=== PATIENT | male | born 1945 | race Caucasian/White ===

== ENCOUNTER 2023-01-23 10:00 | Emergency (ER) | payer OTHER ==
--- OUTSIDE RECORDS SUMMARY | 2023-01-23 10:03 | XMS REPORT | Continuity of Care Document ---
:1945 Author Organization [facility] t Address [address] [facility]. [address] [place] [address] Care Team Providers Name Role Phone Kieran Burger Primary Care Physician Eduardo Quintero Attending Clinician Unavailable Vaccine, Ang Db Cbc Fam Attending Clinician Unavailable Emily Cruz MD Attending Clinician EMILY CRUZ Attending Clinician Unavailable Only, Adc Test Attending Clinician Unavailable Satinder Walsh MD Attending Clinician SATINDER WALSH Attending Clinician Unavailable Doctor Unassigned, [place] Attending Clinician Unavailable Physician, No Primary or Family Admitting Clinician Unavaila ble Payers Payer Name Policy Type Policy Number Effective Date Expiration Date S ource Problems Condition Condition Condition Status Onset Resolution Last Treating Co mments Source Name Details Category Date Date Treatment Clinician Date 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 Asbestosi s. COPD COPD Disease Active 2014-05 Univers (chronic (chronic 1-18 [place] pulmonary pulmonary Bran ch disease) disease) Current Current Disease Active 2014-05 Univers smoker smoker 1-18 ity of 00:00: [address] Allergies, Adverse Reactions, Alerts Allergy Allergy Status Severity Reaction(s) Onset Inactive Treating Comm ents Source Name Type Date Date Clinician No Known DA Active [facility] [place] [facility]: [facility] No Known DA Active U [facility] [place] Allergie 00:00: [facility] NO KNOWN Drug Active Univers ALLERGIE Class ity of S [facility] Social History Social Habit Start Date Stop Date Quantity Comments Source Alcohol Comment 6 pack day Universit y [facility] Exposure to 2021-08-17 2021-08-27 Not sure University of SARS-CoV-2 00:00:00 09:43:00 [facility] (event) [place] Tobacco use and 2017-07-08 2017-07-08 Current user Univers ity of exposure 00:00:00 00:00:00 [facility] Alcohol intake 2017-07-08 2017-07-08 Current drinker Unive rsity of 00:00:00 00:00:00 of alcohol [facility] (finding) Branch History of 2014-03-26 Smoker University of tobacco use 00:00:00 [facility] Sex Ass[birth year] At [birth year] Universit y of 00:00:00 00:00:00 [facility] Smoking Status Start Date Stop Date Source Former smoker 2017-07-08 00:00:00 2017-07-08 00:00:00 Universi ty [facility] Medications Ordered Filled Start Stop Current Ordering Indication Dosage Frequency Signature Comments Components Source Medication Medication Date Date Medication? Clinician (SIG) Name Name MULTIVITAMI Yes Take by Uni vers N ORAL 1-08 mouth. ity of 13:20: [address] Branch VIT A/VIT Yes Take by Unive rs C/VIT 1-08 mouth. ity of E/ZINC/ANN-MARIE 13:20: [address] (PRESERVISI Branch ON AREDS ORAL) cetirizine Yes 10mg Take 10 mg U nivers (ZYRTEC) 10 1-08 by mouth ity of mg tablet 13:20: daily. [address] Branch MULTIVITAMI Yes Take by Uni vers N ORAL 1-08 mouth. ity of 13:20: [address] VIT A/VIT Yes Take by Unive rs C/VIT 1-08 mouth. ity of E/ZINC/ANN-MARIE 13:20: [place] [address] Medical (PRESERVISI Branch ON AREDS ORAL) cetirizine Yes 10mg Take 10 mg U nivers (ZYRTEC) 10 1-08 by mouth ity of mg tablet 13:20: daily. [address] MULTIVITAMI Yes Take by Uni vers N ORAL 1-08 mouth. ity of 07:20: [address] VIT A/VIT Yes Take by Unive rs C/VIT 1-08 mouth. ity of E/ZINC/ANN-MARIE 07:20: [place] [address] Medical (PRESERVISI Branch ON AREDS ORAL) cetirizine Yes 10mg Take 10 mg U nivers (ZYRTEC) 10 1-08 by mouth ity of mg tablet 07:20: daily. [address] Branch hydrocortis Yes Apply to Un felicia one 1-08 affected ity of (PROCTOCORT 00:00: area(s) Efraín as ) 1 % cream 00 daily. Medica l Branch hydrocortis Yes Apply to Un felicia one 1-08 affected ity of (PROCTOCORT 00:00: area(s) Efraín as ) 1 % cream 00 daily. Medica l Branch hydrocortis Yes Apply to Un felicia one 1-08 affected ity of (PROCTOCORT 00:00: area(s) Efraín as ) 1 % cream 00 daily. Medica l Branch Procedures Procedure Date / Time Performed Performing Clinician [facility] SARS-COV-2 COVID-19 2021-08-27 15:33:07 [facility] Branch BOOSTER,0.25ML,IM (MODERNA) ASSIGNMENT OF BENEFITS 2020-06-03 16:04:29 Doctor Unassigned, No [facility] Name Medical Branch Encounters Start End Encounter Admission Attending Care Care Encounter Source Date/Time Date/Time Type Type Clinicians Facility Department ID 2022-09-10 Outpatient [facility] [id number] Common 10:28:00 [id number] [facility] 2022-09-04 [facility] [id number] Common 11:11:00 [id number] [facility] 2020-06-13 Inpatient LALA Garcia [id number] [facility] 05:55:15 Eduardo Soraya [place] [facility] 2021-08-27 2021-08-27 Imm/Inj Vaccine, Ang Db Cbc Fam [facility] 1. [id number] Univers 10:00:00 10:10:00 Visit Emily Cruz [id number] ity of [facility] [id number] Efraín as SALLY?BLEA [phone] Al [address] MEDICAL OFFICE BUILDING 2021-08-27 2021-08-27 Outpatient Razia CRUZ [facility] [id number] Univers 10:00:00 10:00:00 EMILY garcia [facility] 2020-06-03 2020-06-03 Laboratory Only, [facility] Test [facility] [id number]. [id number] Univers 10:07:29 10:22:29 Only Satinder Walsh [id number] ity of [place] [id number] [facility] [phone] [facility] [address] [place] 2020-06-03 2020-06-03 Laboratory Only, [facility] [id number] 10:07:29 10:22:29 Only Test Katlyn [id number] [place] [id number] [place] [id number] 2020-06-03 2020-06-03 Outpatient Razia WALSH [facility] [id number] Univers 10:00:00 10:00:00 SATINDER garcia [facility] 2020-06-03 2020-06-03 Orders Doctor GLORIA [id number] Univers 00:00:00 00:00:00 Only UnassignedYULIANA [id number] ity of [place] [facility] [id number] Efraín as [id number] [address] 2020-06-03 2020-06-03 Orders Doctor FAIZAN [id number] 00:00:00 00:00:00 Only Unassigned, YULIANA [id number] [place] [facility] [id number] Results This patient has no known results.
[2023-01-23 10:32] LABS: Absolute Lymphocytes (CBC) 1.5 K/uL (0.7-4.9); Hematocrit 43.6 % (39.6-49.0); Lymphocytes % 12.8 % (15.3-44.8); MCV 99.6 fL (80-100); MPV 7.1 fL (7.6-11.3); Platelets 188 thou/uL (152-406); RBC Red Blood Cell Count 4.38 M/uL (4.33-5.43)
[2023-01-23 10:38] LABS: Protime INR 1.14
[2023-01-23 10:49] LABS: Albumin 3.7 g/dL (3.4-5.0); Bilirubin Total 1.1 mg/dL (0.2-1.0); Potassium 4.1 mEq/L (3.5-5.1); Protein, Total 7.5 g/dL (6.4-8.2)
--- NOTE | 2023-01-23 11:12 | RAD REPORT ---
EXAM DESCRIPTION: RAD - Tib Fib Left - 01/23/2023 11:07 am CLINICAL HISTORY: eval for foreign body Pain and swelling COMPARISON: <Comparisons> FINDINGS: No fracture or radiopaque foreign body. Mild soft tissue swelling is seen pretibial soft t issues.
--- NOTE | 2023-01-23 11:36 | EDPHYS ---
Physician Documentation [facility] Name: Kvng Conley Jr Age: 77 yrs Sex: Male : 1945 Arrival Date: 01/23/2023 Time: 10:00 Bed 5 Private MD: Maureen Burger C ED Physician Jian Howe HPI: 01/23 11:32 This 77 yrs old Male presents to ER via Ambulatory with complaints of Wound Check. rn 11:32 This 77 yrs old Male presents to ER via Ambulatory with complaints of leg swelling. rn 11:32 The patient presents with pain, swelling. The complaints affect the left del cid. rn 11:33 Onset: The symptoms/episode began/occurred 3 day(s) ago. Modifying factors: The rn symptoms are alleviated by nothing. the symptoms are aggravated by movement. Severity of symptoms: At their worst the symptoms were mild, in the emergency department the symptoms are unchanged. The patient has not experienced similar symptoms in the past. Patient reports using weedeater and small branch/twig got stuck in left lower anterior leg. Was only stuck about half an inch and he was able to pull it out with any evidence of arterial bleeding. Washed the wound. Now having small area of redness and swelling to the affected area and left ankle. No fever or chills.. Historical: - Allergies: 10:14 No Known Allergies; hb - Immunization history:: Adult Immunizations up to date. - Social history:: Smoking status: Patient denies any tobacco usage or history of. - Family history:: not pertinent. - Hospitalizations: : No recent hospitalization is reported. ROS: 11:33 Constitutional: Negative for fever, chills, and weight loss, Cardiovascular: Negative rn for chest pain, palpitations, and edema, Respiratory: Negative for shortness of breath, cough, wheezing, and pleuritic chest pain, MS/Extremity: Positive injury and redness to left lower extremity Neuro: Negative for headache, weakness, numbness, tingling, and seizure, Exam: 11:33 Constitutional: This is a well developed, well nourished patient who is awake, alert, rn and in no acute distress. Skin: Warm, dry, mild erythema to distal left lower extremity, no fluctuance, mild swelling around the left ankle. No foreign bodies identified. No proximal streaking. MS/ Extremity: Pulses equal, no cyanosis. Neurovascular intact. Full, normal range of motion. Vital Signs: 10:11 BP 143 / 85; Pulse 62; Resp 16; Temp 98.5(O); Pulse Ox 100% on R/A; Pain 10/10; hb 10:27 BP 143 / 85; Pulse 58; Resp 18; Pulse Ox 100% on R/A; ld1 10:27 Weight 82.55 kg; Height 5 ft. 8 in. ; Pain 7/10; ld1 11:16 BP 126 / 78; Pulse 51; Resp 18; Pulse Ox 100% on R/A; ld1 10:27 Body Mass Index 27.67 (82.55 kg, 172.72 cm) ld1 10:11 Pain Scale: Adult hb 10:27 Pain Scale: Adult ld1 MDM: 10:03 Patient medically screened. rn 11:33 Differential diagnosis: foreign body, cellulitis. Data reviewed: vital signs, nurses rn notes, lab test result(s), radiologic studies, plain films, and as a result, I will discharge patient. Counseling: I had a detailed discussion with the patient and/or guardian regarding the historical points, exam findings, and any diagnostic results supporting the discharge/admit diagnosis, lab results, radiology results, the need for outpatient follow up, to return to the emergency department if symptoms worsen or persist or if there are any questions or concerns that arise at home. Special discussion: I discussed with the patient/guardian in detail that at this point there is no indication for admission to the hospital. It is understood, however, that if the symptoms persist or worsen the patient needs to return immediately for re-evaluation. Based on the history and exam findings, there is no indication for further emergent testing or inpatient evaluation. I discussed with the patient/guardian the need to see the primary care provider for further evaluation of the symptoms. ED course: I have personally reviewed all of the results, including but not limited to blood tests and imaging deemed necessary to safely discharge this patient at this time. All results given to and printed out for patient. I personally went over all the results with the patient and answered all questions. Patient will follow-up with PCP and or specialist as discussed. Return precautions given and understood.. 01/23 10:18 Order name: Blood Culture Adult (2) rn 01/23 10:18 Order name: CBC with Diff; Complete Time: 10:50 rn 01/23 10:18 Order name: CMP; Complete Time: 10: rn 01/23 10:18 Order name: Lactate w/ 2H reflex if indic.; Complete Time: 10: rn 01/23 10:18 Order name: Protime (+inr); Complete Time: 10: rn 01/23 10:18 Order name: Ptt, Activated; Complete Time: 10: rn 01/23 10:18 Order name: XRAY Tib Fib LEFT; Complete Time: 11:15 rn 01/23 10:18 Order name: EKG; Complete Time: 10: rn 01/23 10:18 Order name: Accucheck; Complete Time: 10: rn 01/23 10:18 Order name: Cardiac monitoring; Complete Time: : rn 01/23 10:18 Order name: EKG - Nurse/Tech; Complete Time: 10:37 rn 01/23 10:18 Order name: IV Saline Lock - Large Bore; Complete Time: 10: rn 01/23 10:18 Order name: Labs collected and sent; Complete Time: 10: rn 01/23 10:18 Order name: O2 Per Protocol; Complete Time: 10: rn 01/23 10:18 Order name: O2 Sat Monitoring; Complete Time: : rn 01/23 10:18 Order name: Vital Signs; Complete Time: 10:26 rn Administered Medications: 11:48 Drug: Clindamycin IVPB 600 mg IVPB once over 30 mins; (mix in 50 mL) Route: IVPB; ph Infused Over: 30 mins; Site: right antecubital; 12:37 Follow up: Response: No adverse reaction; IV Status: Completed infusion ph 12:06 Drug: ceFAZolin IVPB 1 grams IVPB once Route: IVPB; Site: right antecubital; ph 12:37 Follow up: Response: No adverse reaction; IV Status: Completed infusion ph Disposition Summary: 01/23/23 11:36 Discharge Ordered Notes: Location: Home rn Problem: new rn Symptoms: are unchanged rn Condition: Stable rn Diagnosis - Cellulitis of left lower limb rn - Puncture wound without foreign body, left lower leg, initial encounter rn Followup: rn - With: Private Physician - When: 2 - 3 days - Reason: Recheck today's complaints, Re-evaluation by your physician Discharge Instructions: - Discharge Summary Sheet rn - Cellulitis, Adult rn Forms: - Medication Reconciliation Form rn - Thank You Letter rn - Antibiotic distance learning coordinator - Prescription Opioid Use rn - Patient Portal Instructions rn - Leadership Thank You Letter rn Prescriptions: - Cephalexin 500 mg Oral Capsule - take 1 capsule ORAL route every 12 hours for 10 days; 20 capsule; Refills: 0, rn Product Selection Permitted - Clindamycin HCl 300 mg Oral Capsule - take 1 capsule ORAL route every 6 hours for 10 days; 40 capsule; Refills: 0, rn Product Selection Permitted Signatures: Dispatcher [employer] EDJian Maldonado MD MD rn Hall, Patricia, RN RN Kianna Perry RN RN Corrections: (The following items were deleted from the chart) 11:34 11:33 Constitutional: Negative for fever, chills, and weight loss, MS/Extremity: rn Positive injury and redness to left lower extremity rn
--- NOTE | 2023-01-23 11:36 | ER ---
Nurse's Notes [facility] Name: Kvng Conley Jr Age: 77 yrs Sex: Male : 1945 Arrival Date: 01/23/2023 Time: 10:00 Bed 5 Private MD: Maureen Burger C Diagnosis: Cellulitis of left lower limb;Puncture wound without foreign body, left lower leg, initial encounter Presentation: 01/23 10:11 Chief complaint: Stick punctured left del cid while using weed eater 3 days ago, now c/o hb pain, redness, swelling, subjective fever, and chills. Coronavirus screen: At this time, the client does not indicate any symptoms associated with coronavirus-19. Ebola Screen: No symptoms or risks identified at this time. Initial Sepsis Screen: Does the patient meet any 2 criteria? No. Patient's initial sepsis screen is negative. Does the patient have a suspected source of infection? No. Patient's initial sepsis screen is negative. Risk Assessment: Do you want to hurt yourself or someone else? Patient reports no desire to harm self or others. Onset of symptoms was January 20, 2023. 10:11 Method Of Arrival: Ambulatory hb 10:11 Acuity: DANITZA 3 hb Historical: - Allergies: 10:14 No Known Allergies; hb - Immunization history:: Adult Immunizations up to date. - Social history:: Smoking status: Patient denies any tobacco usage or history of. - Family history:: not pertinent. - Hospitalizations: : No recent hospitalization is reported. Screenin:27 [facility] ED Fall Risk Assessment (Adult) History of falling in the last 3 months, ld1 including since admission No falls in past 3 months (0 pts). Abuse screen: Denies threats or abuse. Denies injuries from another. Nutritional screening: No deficits noted. Tuberculosis screening: No symptoms or risk factors identified. Assessment: 10:27 General: Appears in no apparent distress. comfortable, Behavior is calm, cooperative, ld1 appropriate for age. Pain: Complains of pain in left del cid. Pain: Pain does not radiate. Pain currently is 9 out of 10 on a pain scale. Quality of pain is described as throbbing, Pain began 2-3 days ago. Is continuous. Neuro: Level of Consciousness is awake, alert, obeys commands, Oriented to person, place, time, situation. Cardiovascular: Capillary refill < 3 seconds Patient's skin is warm and dry. Respiratory: Airway is patent Respiratory effort is even, unlabored. GI: Abdomen is flat, non-distended. : No signs and/or symptoms were reported regarding the genitourinary system. EENT: No signs and/or symptoms were reported regarding the EENT system. Derm: Wound noted left del cid. Musculoskeletal: No signs and/or symptoms reported regarding the musculoskeletal system. Vital Signs: 10:11 BP 143 / 85; Pulse 62; Resp 16; Temp 98.5(O); Pulse Ox 100% on R/A; Pain 10/10; hb 10:27 BP 143 / 85; Pulse 58; Resp 18; Pulse Ox 100% on R/A; ld1 10:27 Weight 82.55 kg; Height 5 ft. 8 in. ; Pain 7/10; ld1 11:16 BP 126 / 78; Pulse 51; Resp 18; Pulse Ox 100% on R/A; ld1 10:27 Body Mass Index 27.67 (82.55 kg, 172.72 cm) ld1 10:11 Pain Scale: Adult hb 10:27 Pain Scale: Adult ld1 ED Course: 10:02 Patient arrived in ED. rg4 10:03 Jian Howe MD is Attending Physician. rn 10:03 Maureen Burger MD is Private Physician. rg4 10:14 Triage completed. hb 10:14 Arm band placed on. hb 10:26 Shawanda Burgess, NILA is Primary Nurse. ld1 10:26 Blood Culture Adult (2) Sent. ld1 10:26 Lactate w/ 2H reflex if indic. Sent. ld1 10:27 Patient has correct armband on for positive identification. Placed in gown. Bed in low ld1 position. Call light in reach. Side rails up X2. quality assurance monitor chassis on. Pulse ox on. NIBP on. Door closed. Noise minimized. Warm blanket given. 10:27 No provider procedures requiring assistance completed. Inserted saline lock: 20 gauge ld1 in right antecubital area, using aseptic technique. Blood collected. 11:08 XRAY Tib Fib LEFT In Process Unspecified. EDMS 12:38 IV discontinued, intact, bleeding controlled, No redness/swelling at site. Pressure ph dressing applied. Administered Medications: 11:48 Drug: Clindamycin IVPB 600 mg IVPB once over 30 mins; (mix in 50 mL) Route: IVPB; ph Infused Over: 30 mins; Site: right antecubital; 12:37 Follow up: Response: No adverse reaction; IV Status: Completed infusion ph 12:06 Drug: ceFAZolin IVPB 1 grams IVPB once Route: IVPB; Site: right antecubital; ph 12:37 Follow up: Response: No adverse reaction; IV Status: Completed infusion ph Outcome: 11:36 Discharge ordered by MD. ramos 12:37 Discharged to home via wheelchair, with significant other, ph 12:37 Condition: good 12:37 Discharge instructions given to patient, significant other, Instructed on discharge instructions, follow up and referral plans. medication usage, Demonstrated understanding of instructions, follow-up care, medications, Prescriptions given X 2, 12:38 Patient left the ED. ph Signatures: Dispatcher [employer] EDMS Jian Howe MD MD rn Hall, Patricia, RN RN ph Baxter, Heather, RN RN hb Garcia, Rubi rg4 Shawanda Burgess RN RN ld1
[2023-01-23] MEDS ORDERED: CEFAZOLIN SODIUM 1 GM/VIAL ONE (11:41)
[2023-01-23] MEDS ORDERED: NA CHLORIDE 0.9% 50 ML ONE (11:41)
[2023-01-23] MEDS ORDERED: CLINDAMYCIN 600MG/D5W 50 ML IV ONE (11:41)
[2023-01-23 12:44] VITALS: TEMP 98.5; O2SAT 100
[2023-01-23 12:47] VITALS: BP 126/78
[2023-01-23] MEDS ORDERED: MAGNES/ALUMIN/SIMET 30ML UCUP ONE (13:05)
[2023-01-23] MEDS ORDERED: FAMOTIDINE 20 MG/2 ML VIAL IV ONE (13:06)
[2023-01-23] MEDS ORDERED: MORPHINE 4 MG/ML SYR ONE (13:06)
--- NOTE | 2023-01-25 12:34 | EKG ---
Test Date: 2023-01-23 Test Time: 10:34:42 Ncqa Specialist: Tony LUNA MEASUREMENT RESULTS: Intervals: Rate: 57 TX: 166 QRSD: 100 QT: 398 QTc: 387 Bowers: P: 61 TX: 166 QRS: -78 T: 48 INTERPRETIVE STATEMENTS: Sinus bradycardia Incomplete right bundle branch block Left anterior fascicular block Abnormal ECG Compared to ECG 06/05/2020 12:16:45 Incomplete right bundle-branch block now present Left anterior fascicular block now present Electronically Signed On 01-25-23 12:31:16 CDT by Kieran Araujo
== END 2023-01-23 12:38 | disposition home or self-care (01) ==
LOC: ER 10:00
DX: L03.116 Cellulitis of left lower limb (principal)
CPT/HCPCS: 96365; 87040 ×2; 85025; 36415; 85610; 83605; 85730; 80053; 73590; 99285; J0690; 93005